=== PATIENT | male | born 1980 | race American Indian/Alaskan Native ===

== ENCOUNTER 2021-08-01 17:43 | Emergency (ER) | payer OTHER ==
[2021-08-02] MEDS ORDERED: traMADol 50 MG TAB PO ONE (02:29)
--- NOTE | 2021-08-02 03:00 | XRay Report ---
Cervical spine 3 views INDICATION: Neck pain FINDINGS: Alignment appears normal. No prevertebral soft tissue swelling. No subluxation. No acute fi ndings. Signer Name: Hernan Torres MD Signed: 08/02/2021 2:56 AM Workstation Name: [id number]
--- NOTE | 2021-08-02 03:01 | XRay Report ---
Lumbar spine 2 views INDICATION: Back pain FINDINGS: Alignment appears normal. Sacrum and sacroiliac joints appear normal. No compression fractu re. Signer Name: Hernan Torres MD Signed: 08/02/2021 2:57 AM Workstation Name: [id number]
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
[2021-08-02 04:42] VITALS: BP 138/70
== END 2021-08-02 04:42 | disposition home or self-care (01) ==
LOC: ED 17:43
DX: S16.1XXA Strain of muscle, fascia and tendon at neck level, initial encounter (principal); S39.012A Strain of muscle, fascia and tendon of lower back, initial encounter; V89.2XXA Person injured in unspecified motor-vehicle accident, traffic, initial encounter; Y93.89 Activity, other specified; Y92.89 Other specified places as the place of occurrence of the external cause; Y99.8 Other external cause status
CPT/HCPCS: 72040; 72100; 99283